=== PATIENT | female | born 1970 | race Caucasian/White ===

== ENCOUNTER 2017-05-24 06:28 | Observation (INO) | payer OTHER ==
[~2017-05-24] VITALS: Ht 165.1 cm; Wt 80.5 kg
[~2017-05-24 06:28] MED LIST: ACETAMINOPHEN 1000 MG/100 ML 100 ML IV ONE; ALPR0.5T3 PO; CEPH-460 PO; FURO20TA PO; IBUP-232 PO; MIDAZOLAM HCL 2 MG/2 ML VIAL ONE; OXYC1TAB63 PO; POTA10CA PO; VENL37.5 PO; fentaNYL CITRATE 250 MCG/5 ML AMP ONE
[2017-05-24] MEDS ORDERED: LACTATED RINGER'S 1000 ML IV PRN (07:00)
[2017-05-24] MEDS ORDERED: INSULIN HUMAN REGULAR 1,000 UNITS/10 ML VIAL SQ PRN (07:00)
[2017-05-24] MEDS ORDERED: CHLORHEXIDINE GLUCONATE 2 % 1 PACK (2 CLOTHS) TOPICAL PRN (07:00)
[2017-05-24] MEDS ORDERED: ceFAZolin 2 GM PREMIX 50 ML IV SCH (07:00)
[2017-05-24] MEDS ORDERED: METOPROLOL TARTRATE 25 MG TAB PO PRN (07:00)
[2017-05-24] MEDS ORDERED: SODIUM CHLORID 0.9% 500 ML IV PRN (07:00)
[2017-05-24] MEDS ORDERED: POVIDONE IODINE 5% (ANTISEPSIS KIT) 4 APPLICATIONS EACH NARE PRN (07:00)
[2017-05-24] MEDS ORDERED: VALT500T PO (07:19)
[2017-05-24] MEDS ORDERED: MIDAZOLAM HCL 2 MG/2 ML VIAL ONE (07:30)
[2017-05-24] MEDS ORDERED: FAMOTIDINE 20 MG/2 ML VIAL ONE (07:31)
[2017-05-24] MEDS ORDERED: LIDOCAINE 1%/EPINEPHrine 1:100,000 SOLN 30 ML VIAL ONE (07:32)
[2017-05-24] MEDS ORDERED: ONDANSETRON HCL 4 MG/2 ML VIAL ONE (07:34)
[2017-05-24] MEDS ORDERED: EPINEPHrine HCL (1:1000) 1 MG/ML VIAL ONE (08:03)
[2017-05-24] MEDS ORDERED: LIDOCAINE HCL 1% PF 30 ML VIAL ONE (08:03)
[2017-05-24] MEDS ORDERED: LIDOCAINE 0.5%/EPINEPHrine 1:200,000 SOLN 50 ML VIAL ONE (08:03)
[2017-05-24] MEDS ORDERED: LIDOCAINE 2%/EPINEPHrine PF 1:200,000 20ML SDV ONE (08:03)
[2017-05-24] MEDS ORDERED: SODIUM CHLOR 0.9% 1000 ML INJ 1,000 ML IV ONE (09:05)
[2017-05-24 11:35] VITALS: PULSE 77
[2017-05-24] MEDS ORDERED: MORPHINE SULFATE 4 MG/ML INJ ONE ×2 (11:40→12:47)
[2017-05-24] MEDS ORDERED: PROPOFOL 200 MG/20 ML AMP IV ONE (12:00)
[2017-05-24] MEDS ORDERED: ROCURONIUM INJ 50 MG/5 ML VIAL IV ONE (12:00)
[2017-05-24] MEDS ORDERED: ePHEDrine/NS 25 MG/5 ML SYR IV ONE (12:00)
[2017-05-24] MEDS ORDERED: ONDANSETRON HCL 4 MG/2 ML VIAL IV PUSH ONE (12:00)
[2017-05-24] MEDS ORDERED: GLYCOPYRROLATE 0.2 MG/ML VIAL IV ONE (12:00)
[2017-05-24] MEDS ORDERED: NEOSTIGMINE 3 MG/3 ML SYR IV ONE (12:00)
[2017-05-24] MEDS ORDERED: LACTATED RINGER'S 1000 ML INJ 1,000 ML IV ONE (12:00)
[2017-05-24] MEDS ORDERED: DO NOT ADM ANY ANTICOAGULANT DRUGS PRN (12:15)
[2017-05-24] MEDS ORDERED: *MEPERIDINE 25 MG INJ VIAL PERIprocedural Use ONLY ONE (12:22)
[2017-05-24] MEDS: LACTATED RINGER'S 1000 ML INJ 1,000 ML IV SCH ×2 (12:30→22:33)
[2017-05-24] MEDS ORDERED: *HYDROmorphone PF 1 MG VIAL PERIprocedural Use ONLY ONE (12:59)
[2017-05-24 13:03] VITALS: PULSE 68
[2017-05-24] MEDS: ceFAZolin 2 GM PREMIX 50 ML IV SCH (15:04)
[2017-05-24] MEDS: HYDROmorphone HCL PF 0.5 MG/0.5 ML SYRINGE IV PRN ×2 (15:04→20:23)
[2017-05-24] MEDS: oxyCODONE/ACETAMINOPHEN 7.5 MG/325 MG TAB PO PRN (18:24)
--- NOTE | 2017-05-24 19:10 | MP ---
cc: ANA PAULA CLAY DATE OF SURGERY 05/24/2017 PREOPERATIVE DIAGNOSIS Bilateral hypermastia. POSTOPERATIVE DIAGNOSIS Bilateral hypermastia. OPERATION Bilateral reduction mammoplasty SURGEON Dr. Varinder Clay ANESTHESIA General INDICATIONS A 46-year-old white female with very large breasts. She also had other surgeries including gastric bypass for obesity and has done well since. She underwent detailed explanation of the reduction mammoplasty procedure including the flap design, the reduction to be carried out from the lateral and superior and partially from the medial aspect. Inferior pedicle design was explained. The possible risk and complications were explained in detail including the loss of flap and possibility of breast tissue necrosis inside leading to long-term changes, the possibility of future surgeries exist. The patient has undergone multiple other body contouring surgeries as well and she is comfortable with the same. PROCEDURE IN DETAIL The patient was brought to the operating room, was given supine position. Anesthesia was started. Prep and drape was done. IV antibiotic had been given. The time-out was called and completed. The preoperative markings were reinforced. Dilute mixture of saline lidocaine and epinephrine was used to tumesce the inferior pedicle skin and it was de-epithelialized. The flaps were raised off the breast superiorly. The de-epithelialized lateral portion was preserved and the reduction was carried out from lateral aspect going superior and slightly medial. The pedicle base was kept as wide as responsible. The hemostasis was completed. The lateral dermal pedicles were tacked to the anterior axillary line with 2-0 Vicryl sutures and partly to the breast to stabilize the lateral boundary of the breast. The lateral flap was also tacked down to the chest wall with a few stitches to obliterate the space. Aries-Chaudhari drains were placed. T anchor design sutures were completed with Vicryl and Prolene. Nipples were exteriorized at approximately 8 cm from the inframammary fold position symmetrical on both sides. they were sutured in place with Vicryl and Prolene as well. The total tissue removed on the right side was 525 grams, on the left 555 grams. Blood loss less than 50 mL. The patient remained stable. No complications. All the areas were cleaned and sterile dressing was applied. signed, not fully reviewed MD STAR Whipple/ /11:19 AM /6:59 PM MTDD
[2017-05-24 20:00] VITALS: BP 91/60; PULSE 62; RESP 20; TEMP 97.8; O2SAT 98
[2017-05-24] MEDS: PROMETHAZINE HCL 25 MG TAB PO PRN (20:23)
[2017-05-25] VITALS: BP 92/55; PULSE 59; RESP 18; TEMP 96.5; O2SAT 100
[2017-05-25] MEDS: ceFAZolin 2 GM PREMIX 50 ML IV SCH (00:38)
[2017-05-25] MEDS: HYDROmorphone HCL PF 0.5 MG/0.5 ML SYRINGE IV PRN (05:33)
[2017-05-25] MEDS: PROMETHAZINE HCL 25 MG TAB PO PRN ×2 (05:35→14:47)
[2017-05-25 08:00] VITALS: BP 87/46; PULSE 62; TEMP 97; O2SAT 99
[2017-05-25 12:00] VITALS: BP 93/50; PULSE 73; RESP 15; TEMP 98.2; O2SAT 100
[2017-05-25] MEDS: oxyCODONE/ACETAMINOPHEN 7.5 MG/325 MG TAB PO PRN ×2 (12:41→17:13)
[2017-05-25] MEDS ORDERED: PROM25TA10 PO (15:41)
--- NOTE | 2017-05-25 15:41 | PD.PLAS.PN ---
Subjective Remarks Patient doing well, afebrile breasts soft, no hematoma Nipple sensitive to touch on the right side. left side reduced. Drains good Flaps soft, pink and normal warm. Plan DC today Tuesday in [facility]. Vital Signs Date Time Temp Pulse Resp B/P (MAP) Pulse Ox O2 Delivery O2 Flow Rate FiO2 05/25/17 12:00 98.2 73 15 93/50 (64) 100 05/25/17 08:00 97.0 62 87/46 (60) 99 05/25/17 00:00 96.5 59 18 92/55 (67) 100 05/24/17 20:00 97.8 62 20 91/60 (70) 98 05/24/17 19:24 18 I/O 05/24/17 05/24/17 05/24/17 05/25/17 05/25/17 05/25/17 07:00 15:00 23:00 07:00 15:00 23:00 Intake Total 2650 ml 750 ml 480 ml Output Total 350 ml 200 ml 800 ml 20 ml Balance 2300 ml 550 ml -320 ml -20 ml Intake Oral 300 ml 480 ml IV Total 600 ml 750 ml Other 1750 ml Output Urine Total 300 ml 150 ml 800 ml Drainage Total 50 ml 20 ml Estimated Blood Loss 50 ml # Bowel Movements 0 Abdulaziz Clay MD May 25, 2017 15:41
[2017-05-25 16:00] VITALS: BP 90/50; PULSE 70; RESP 16; TEMP 97; O2SAT 97
== END 2017-05-25 17:34 | disposition home or self-care (01) ==
LOC: PHSDC 06:28 → PH3B 13:55
PROVIDERS: ADMIT Plastic Surgery; ATTEND Plastic Surgery
DX: N62 Hypertrophy of breast (principal); E66.9 Obesity, unspecified; Z98.84 Bariatric surgery status; D50.9 Iron deficiency anemia, unspecified; R10.13 Epigastric pain; J01.00 Acute maxillary sinusitis, unspecified; M25.473 Effusion, unspecified ankle; I49.9 Cardiac arrhythmia, unspecified; E78.5 Hyperlipidemia, unspecified; K58.9 Irritable bowel syndrome, unspecified; N92.1 Excessive and frequent menstruation with irregular cycle; R06.00 Dyspnea, unspecified; R00.2 Palpitations; M96.1 Postlaminectomy syndrome, not elsewhere classified; M46.1 Sacroiliitis, not elsewhere classified
CPT/HCPCS: 00402; 19318; 88305; 96361; 96374; 96376; G0378; J0131; J0171; J0690; J1170; J2175; J2250; J2270; J2405; J2710; J3010; J7030; J7120; Q0169

== ENCOUNTER 2017-07-17 09:38 | Emergency (ER) | payer OTHER ==
[~2017-07-17] VITALS: Ht 165.1 cm; Wt 83.0 kg
[~2017-07-17 09:38] MED LIST changes: -ACETAMINOPHEN 1000 MG/100 ML 100 ML IV ONE; -ALPR0.5T3 PO; -CEPH-460 PO; -IBUP-232 PO; -MIDAZOLAM HCL 2 MG/2 ML VIAL ONE; -OXYC1TAB63 PO; +PROM25TA10 PO; +VALT500T PO; -VENL37.5 PO; -fentaNYL CITRATE 250 MCG/5 ML AMP ONE
[2017-07-17 09:45] VITALS: BP 96/58; PULSE 78; RESP 16; TEMP 98.2; O2SAT 100
--- NOTE | 2017-07-17 11:24 | PD ---
HPI Chief Complaint: Musculoskeletal Complaint Time Seen by Provider: 10:17 Travel History International Travel<30 days: No Contact w/Intl Traveler<30days: No Traveled to known affect area: No History of Present Illness HPI 47-year-old female patient presents emergency department for evaluation of right knee pain that started last night when she was dancing at a [employer] party. Patient states she fell her right knee pop and it felt like there was tearing sensation. Subsequently the right knee is edematous and the patient is hesitant to move it secondary to pain. The right leg is neurovascularly intact. She has been ambulatory on the leg. She denies any other injuries from this event. She denies falling or hitting her head. PFSH Past Medical History Autoimmune Disease: Yes (LUPUS) Blood Disorders: No Anxiety: Yes Heart Rhythm Problems: No Cancer: No Cardiovascular Problems: No High Cholesterol: No Congestive Heart Failure: No Diabetes: No Diminished Hearing: No Endocrine: No Fibromyalgia: Yes Gastrointestinal Disorders: Yes (REFLUX) GERD: Yes Genitourinary: Yes Hepatitis: No Hiatal Hernia: No Hypertension: No Kidney Stones: Yes Medical other: Yes (RLE EDEMA) Musculoskeletal: Yes (LUMBAR DDD) Neurologic: No Psychiatric: Yes (ANXIETY) Reproductive: Yes (UTERINE BLEEDING) Respiratory: No Thyroid Disease: No PNEUMOCCOCAL Vaccine (Year): 1 ?: Not : 3 Para: 2 Miscarriage: 1 Dilation and Curettage (D&C): Yes Past Surgical History Abdominal Surgery: Yes (ABDOMINOPLASTY, LIPOSUCTION 2002, GASTRIC BYPASS) AICD: No Body Medical Devices: NONE Cardiac Surgery: No Section: Yes Ear Surgery: No Endocrine Surgery: No Eye Surgery: No Genitourinary Surgery: Yes (ESWL X4, MULTIPLE STENTS) Joint Replacement: No Oral Surgery: Yes Pacemaker: No Thoracic Surgery: No Social History Alcohol Use: Yes (DECLINES TO QUANTIFY) Tobacco Use: No Substance Use: No Allergies-Medications (Allergen,Severity, Reaction): Coded Allergies: No Known Allergies (Verified Adverse Reaction, Unknown, 07/17/17) Reported Meds & Prescriptions Reported Meds & Active Scripts Active Reported Furosemide 20 Mg Tab 20 Mg PO BID Review of Systems Except as stated in HPI: all other systems reviewed are Neg Physical Exam Narrative GENERAL: Well-nourished, well-developed 47-year-old female patient in no acute distress. Nontoxic appearing. SKIN: Focused skin assessment warm/dry. HEAD: Normocephalic. Atraumatic. EYES: No scleral icterus. No injection or drainage. NECK: Supple, trachea midline. No JVD or lymphadenopathy. CARDIOVASCULAR: Regular rate and rhythm without murmurs, gallops, or rubs. RESPIRATORY: Breath sounds equal bilaterally. No accessory muscle use. GASTROINTESTINAL: Abdomen soft, non-tender, nondistended. MUSCULOSKELETAL: Right knee is mildly edematous. Full range of motion with extension. Right leg neurovascularly intact. Flexion unable to be assessed because patient refuses to move knee secondary to pain. No obvious deformity, ecchymosis or erythema. BACK: Nontender without obvious deformity. No CVA tenderness. Data Data Last Documented VS Vital Signs Date Time Temp Pulse Resp B/P (MAP) Pulse Ox O2 Delivery O2 Flow Rate FiO2 07/17/17 09:45 98.2 78 16 96/58 (71) 100 Orders Orders Knee, Complete (4vws) (07/17/17 10:33) Ice/Cold Pack (07/17/17 10:33) Ed Discharge Order (07/17/17 12:50) Splint Or Brace Apply/Monitor (07/17/17 12:50) Crutches (07/17/17 12:50) Immobilizer Knee 20 Inch (07/17/17 ) MDM Medical Decision Making Medical Screen Exam Complete: Yes Emergency Medical Condition: Yes Differential Diagnosis Differential diagnoses include but not limited to knee sprain, knee strain, Narrative Course X-ray of the right knee ordered and pending. Patient had taken ibuprofen prior to arrival. Ice applied to right knee. X-ray shows moderate to large suprapatellar knee effusion. No acute fracture dislocation. Findings discussed with patient. Patient states she will follow up with orthopedist to have effusion drained if the symptoms persist. Patient encouraged to follow up with orthopedist anyway for an MRI of the knee due to the fact that she heard a pop and tearing sensation. Patient states she will follow up with orthopedist for further evaluation. Patient given information for Dr. Yusuf. She says she will call them next week. Patient discharged home with rice therapy instructions right knee. Patient instructed to return the emergency Department with any worsening condition but otherwise follow up next week as discussed. Last Impressions Knee X-Ray 07/17/17 1033 Signed Impressions: Service Date/Time: Monday, July 17, 2017 11:09 - CONCLUSION: 1. Moderate to large suprapatellar knee joint effusion. 2. Mild degenerative changes involving the patellofemoral and femorotibial joints. 3. No acute fracture or dislocation. Que Mendiola MD Diagnosis Primary Impression: Knee sprain Qualified Codes: S83.91XA - Sprain of unspecified site of right knee, initial encounter Additional Impression: Knee effusion, right Referrals: Dnay Yusuf MD Patient Instructions: General Instructions, Knee Sprain (ED) Additional Instructions: Please return to emergency department if your symptoms return or worsen. Follow up with Dr. Yusuf, orthopedist on-call. I provided his contact information and the discharge paperwork. Rice therapy to right knee, rest, ice, splint with activity and elevate with resting. You have a right-sided knee effusion, if the symptoms persist he may want to follow up with the orthopedist to get the effusion drained. Disposition: 01 DISCHARGE HOME Condition: Stable MichaelRosa Maron YOUNG Jul 17, 2017 11:24
--- NOTE | 2017-07-17 12:22 | RADRPT ---
EXAM DATE/TIME: 07/17/2017 11:09 [facility] COMPARISON: No previous studies available for comparison. INDICATIONS : Right knee pain after dancing last night MEDICAL HISTORY : None. SURGICAL HISTORY : None. ENCOUNTER: Initial ACUITY: 1 day PAIN SCORE: 10/10 LOCATION: Right knee FINDINGS: There is a moderate to large suprapatellar knee joint effusion. Mild degenerative changes are noted i nvolving the patellofemoral and femoral-tibial joints. No acute fracture or dislocation is noted. CONCLUSION: 1. Moderate to large suprapatellar knee joint effusion. 2. Mild degenerative changes involving the patellofemoral and femorotibial joints. 3. No acute fracture or dislocation. Que Mendiola MD on July 17, 2017 at 12:18 Board Certified Radiologist. This report was verified electronically.
[2017-08-03] MEDS ORDERED: AMOX500T PO (15:58)
== END 2017-07-17 13:00 | disposition home or self-care (01) ==
LOC: PHED 09:38 → PHEFT 13:00
DX: S83.91XA Sprain of unspecified site of right knee, initial encounter (principal); X50.9XXA Other and unspecified overexertion or strenuous movements or postures, initial encounter; Y93.41 Activity, dancing; Y92.89 Other specified places as the place of occurrence of the external cause
CPT/HCPCS: 73564; 99283; E0113; L1830